=== PATIENT | female | born 1960 | race Caucasian/White ===

== ENCOUNTER 2017-10-18 00:38 | Emergency (ER) | payer OTHER ==
[2017-10-18 01:54] LABS: ALT (SGPT) 21 U/L (8-55); AST (SGOT) 27 U/L (5-34); Alkaline Phosphatase 117 U/L (40-150); Anion Gap 12 mmol/L (10-20); BUN (Urea Nitrogen) 20 mg/dL (9.8-20.1); Bilirubin, Total 0.4 mg/dL (0.2-1.2); Calc. Creatinine Clearance 0 mL/min (70-130); Calcium 9.1 mg/dL (7.8-10.44); Carbon Dioxide 28 mmol/L (22-29); Chloride 102 mmol/L (98-107); Estimated GFR-MDRD 51; Globulin 3.7 g/dL (2.4-3.5); Protein, Total 7.1 g/dL (6.0-8.3)
[2017-10-18 01:55] LABS: Hematocrit 46.1 % (36.0-47.0); Mean Platelet Volume 8.6 fL (7.4-10.4); Red Blood Cell (RBC) Count 4.42 mill/uL (4.20-5.40); White Blood Cell (WBC) Count 4.5 thou/uL (4.8-10.8)
[2017-10-18 02:18] LABS: Band 1 % (5-11); Macrocytosis SLIGHT = 6-15 cells (100X) (0-5/hpf); Neutrophil 55 % (42-75)
--- NOTE | 2017-10-18 07:53 | RAD ---
RIGHT ANKLE RADIOGRAPHS THREE VIEWS: Date: 10-18-17 Provided Clinical History: Right ankle pain status post fall. FINDINGS: There is a transversely oriented nondisplaced fracture involving the medial malleolus. Distal fibular fracture is not definitely apparent. The ankle mortise appears symmetric. Conspicuous Lanre morpho logy of the calcaneus is seen. Joint spaces appear preserved. IMPRESSION: Nondisplaced medial malleolar fracture. POS: [facility]
--- NOTE | 2017-10-18 08:10 | RAD ---
PRELIMINARY REPORT/[facility]/EMERGENCY AFTER HOURS PROCEDURE: EXAM: XR Right Ankle Complete, 3 or More Views EXAM DATE/TIME: Exam ordered 10/18/2017 2:46 AM CLINICAL HISTORY: 57 years old, female; Pain; Ankle; Right TECHNIQUE: Frontal, lateral and oblique views of the right ankle. COMPARISON: No relevant prior studies available. FINDINGS: Bones/joints: Evaluation of the ankle mortise is limited due to patient rotation. There are RIGHT Ach illes tendon enthesophytes. Diffuse bone osteopenia is present. No acute fracture. No dislocation. Soft tissues: Mild swelling. IMPRESSION: Evaluation of the ankle mortise is limited due to patient rotation. Diffuse osteopenia. Thank you for allowing us to participate in the care of your patient. Dictated and Authenticated by: Hamlet Siddiqui MD 10/18/2017 5:10 AM Central Time ([place] & [place]) FINAL REPORT THREE VIEWS OF THE RIGHT ANKLE: INDICATIONS: Injury to the right ankle while being transferred into a van. COMPARISON: None. FINDINGS: There is some moderate enthesopathic change seen involving the calcaneus. No acute fracture or sublu xation is evident. There is diffuse osteopenia. Positioning on the AP imaging is limited. IMPRESSION: No definite acute osseous abnormality within the limitations of this exam. POS: OFF
--- NOTE | 2017-10-18 08:11 | RAD ---
PRELIMINARY REPORT/[facility]/EMERGENCY AFTER HOURS PROCEDURE: EXAM: XR Right Foot Complete, 3 or More Views EXAM DATE/TIME: Exam ordered 10/18/2017 3:40 AM CLINICAL HISTORY: 57 years old, female; Pain; Foot; Right TECHNIQUE: Frontal, lateral and oblique views of the right foot. COMPARISON: CR - XR Ankle Rt 3 View STANDARD 2017-10-18 02:46 FINDINGS: Bones/joints: No acute RIGHT forefoot fracture. Evaluation of the distal tibia is limited due to over lying calcaneus bone and angle of projection. No dislocation. Soft tissues: There is moderate RIGHT forefoot soft tissue swelling. No radiopaque foreign body. IMPRESSION: 1. There is moderate RIGHT forefoot soft tissue swelling. 2. No acute RIGHT forefoot fracture. Thank you for allowing us to participate in the care of your patient. Dictated and Authenticated by: Hamlet Siddiqui MD 10/18/2017 5:12 AM Central Time ([place] & [place]) FINAL REPORT RIGHT FOOT RADIOGRAPHS THREE VIEWS: Date: 10-18-17 Provided Clinical History: Right ankle pain status post injury. FINDINGS/IMPRESSION: There is diffuse regional osteopenia. There is no evidence for fracture or other acute osseous abnorm ality involving the right foot. Please see concurrently dictated right ankle radiographs for details regarding ankle fracture. POS: [facility]
== END 2017-10-18 07:19 | disposition home or self-care (01) ==
LOC: ERS 00:38
DX: S82.54XA Nondisplaced fracture of medial malleolus of right tibia, initial encounter for closed fracture (principal); D64.9 Anemia, unspecified; E11.9 Type 2 diabetes mellitus without complications; K21.9 Gastro-esophageal reflux disease without esophagitis; E03.9 Hypothyroidism, unspecified; J45.909 Unspecified asthma, uncomplicated; F32.9 Major depressive disorder, single episode, unspecified; Z79.82 Long term (current) use of aspirin; Z79.899 Other long term (current) drug therapy; Z79.4 Long term (current) use of insulin; W23.0XXA Caught, crushed, jammed, or pinched between moving objects, initial encounter
CPT/HCPCS: 36415; 80053; 85025